=== PATIENT | male | born 1970 | race Caucasian/White ===

== ENCOUNTER 2017-11-18 15:37 | Emergency (ER) | payer OTHER ==
[~2017-11-18] VITALS: Ht 180.3 cm; Wt 117.5 kg
[2017-11-18 16:05] LABS: ABSOLUTE BASOPHILS 0.1 thou/uL (0.0-0.2); ABSOLUTE EOSINOPHILS 0.1 thou/uL (0.0-0.7); ABSOLUTE LYMPHOCYTES 1.8 thou/uL (0.8-5.3); ABSOLUTE MONOCYTES 0.6 thou/uL (0.0-1.2); ABSOLUTE NEUTROPHILS 6.1 thou/uL (1.6-8.1); BASOPHILS 1.3 %; EOSINOPHILS 1.5 %; HEMATOCRIT 46.5 % (42.0-52.0); HEMOGLOBIN 15.8 gm/dL (14.0-18.0); LYMPHOCYTES 20.8 %; MCH 28.7 pg (26.0-34.0); MCV 84.5 fL (80.0-100.0); MONOCYTES 7.2 %; MPV 7.6 fl. (7.2-11.1); NUCLEATED RBCS 0 /100WBC; PLATELET COUNT* 303 thou/uL (150-400); POLYS 69.2 %; RDW-CV 13.8 % (10.5-14.5); WBC 8.7 thou/uL (4.0-11.0)
[2017-11-18 16:13] LABS: ANION GAP 6 mmol/L (7-16); BUN 14 mg/dL (7-18); CHLORIDE 105 mmol/L (98-107); CO2 29 mmol/L (21-32); GLUCOSE 108 mg/dL (70-99); POTASSIUM 4.1 mmol/L (3.5-5.1); SODIUM 140 mmol/L (136-145)
[2017-11-18 16:26] LABS: ALKALINE PHOSPHATASE 90 U/L (46-116); NT-PRO BRAIN NAT PEPTIDE 47 pg/mL (<300); SGOT 50 U/L (15-37); SGPT 97 U/L (30-65); TOTAL BILIRUBIN 0.6 mg/dL (<0.1-1.0); TROPONIN-I LEVEL <0.06 ng/mL (<0.06)
[2017-11-18 17:10] LABS: URINE BILIRUBIN NEGATIVE (Negative); URINE BLOOD NEGATIVE (Negative); URINE CLARITY CLEAR; URINE COLOR YELLOW; URINE GLUCOSE-RANDOM NEGATIVE (Negative); URINE KETONES 1+ (Negative); URINE LEUKOCYTES-REFLEX NEGATIVE (Negative); URINE NITRITE-REFLEX NEGATIVE (Negative); URINE PROTEIN NEGATIVE (Negative); URINE SPECIFIC GRAVITY >= 1.030 (1.005-1.030); URINE UROBILINOGEN 0.2 E.U./dl (0.2-1.0)
--- NOTE | 2017-11-18 17:20 | EKG ---
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 : 1970 Requested By: Alejandro Paniagua Order Number: [id number] MD: Edenilson Velasco Measurements Intervals [place] Rate: 115 P: 21 TX: 163 QRS: 12 QRSD: 80 T: 165 QT: 297 QTc: 411 Interpretive Statements Sinus tachycardia LVH with secondary repolarization abnormality No previous ECG available for comparison Electronically Signed On 11-18-2017 17:19:50 EDUCATIONAL ASSISTANT by Edenilson Velasco [email or web address] <ELECTRONICALLY SIGNED> By: Edenilson Velasco MD, [facility] 11/18/17 1719 1536 1536 Edenilson Velasco MD, FACC /EPI
[2017-11-18] MEDS ORDERED: LISINOPRIL-HCT1 EAC1 PO (18:20)
[2017-11-18 18:35] VITALS: BP 162/121
== END 2017-11-18 18:35 | disposition home or self-care (01) ==
LOC: M.ERS 15:37
PROVIDERS: Emergency Medicine
DX: I10 Essential (primary) hypertension (principal); I25.10 Atherosclerotic heart disease of native coronary artery without angina pectoris